=== PATIENT | male | born 1970 | race Caucasian/White ===

== ENCOUNTER 2019-04-04 19:04 | Emergency (ER) | payer OTHER ==
--- NOTE | 2019-04-04 20:27 | ER Document Report ---
ED General - General Chief Complaint: Shortness Of Breath Stated Complaint: DIFFICULTY BREATHING Time Seen by Provider: 04/04/19 20:15 TRAVEL OUTSIDE OF THE [place] IN LAST 30 DAYS: No - HPI Notes: Patient was working on a deck and fell through it falling approximately 2 feet hitting the left lateral aspect of his ribs on the existing planks. Since that time his had a cold he feels like he may have acquired a cold from her has been having a lot of sinus congestion wheezing. He had had asthma as a child had recurrent bronchitis in the past. Is a non-smoker no known medical problems is not taking medications on a daily basis - Related Data Allergies/Adverse Reactions: codeine Allergy (Verified 04/04/19 19:09) Penicillins Allergy (Verified 04/04/19 19:09) Past Medical History - Social History Smoking Status: Never Smoker Family History: Reviewed & Not Pertinent Patient has suicidal ideation: No Patient has homicidal ideation: No Physical Exam - Vital signs Vitals: Temp Pulse Resp BP Pulse Ox 99.4 F 84 20 139/85 H 92 04/04/19 19:19 04/04/19 19:19 04/04/19 19:19 04/04/19 19:19 04/04/19 19:19 - General General appearance: Appears well, Alert - HEENT Head: Normocephalic, Atraumatic Eyes: Normal Conjunctiva: Normal Cornea: Normal Extraocular movements intact: Yes Pupils: PERRL - Respiratory Respiratory status: No respiratory distress Chest status: Other - Ecchymosis lateral left aspect of lower chest wall with minor tenderness to palpation but no crepitus. Breath sounds: Other - Mild wheezing upper lung rhodes decreased air movement with no crackles bilateral lower lung rhodes Chest palpation: Tender - Cardiovascular Rhythm: Regular Heart sounds: Normal auscultation Murmur: No - Abdominal Inspection: Normal Distension: No distension Bowel sounds: Normal Tenderness: Nontender - Back Back: Normal, Nontender - Extremities General upper extremity: Normal inspection, Normal ROM General lower extremity: Normal inspection, Normal ROM - Neurological Neuro grossly intact: Yes Cognition: Normal Course - Re-evaluation Re-evalutation: 04/04/19 21:14 Acute findings other than hyperinflation on x-ray. Will provide prednisone and albuterol puffer. Return precautions provided - Vital Signs Vital signs: Temp Pulse Resp BP Pulse Ox 98.5 F 84 17 140/75 H 94 04/04/19 22:00 04/04/19 22:00 04/04/19 22:00 04/04/19 22:00 04/04/19 22:00 Discharge - Discharge Clinical Impression: Bronchitis Condition: Good Disposition: HOME, SELF-CARE Instructions: Bronchitis ([facility]) Additional Instructions: Please use puffer provided 1 to 2 puffs every 4 hours as needed for breathing symptoms. Prescriptions: Prednisone [Deltasone 20 mg Tablet] 2 tab PO DAILY 5 Days tablet
--- NOTE | 2019-04-04 20:28 | RADIOLOGY REPORT (SQ) ---
EXAM DESCRIPTION: CLINICAL HISTORY: 49 years Male, respiratory distress shortness of breath COMPARISON: None. FINDINGS: Chest x-ray demonstrates normal cardiomediastinal silhouette. Mild hyperinflation. No acute lung or pleural abnormalities. No suspicious bilateral rib abnormality. IMPRESSION: No acute findings. Mild hyperinflation.
[2019-04-04] MEDS ORDERED: ALBUTEROL SULFATE HFA (90 MCG/PUFF) 8 GM MDI (1 MDI/ER DISP) IH ONE (21:13)
[2019-04-04 22:17] VITALS: BP 140/75
== END 2019-04-04 22:00 | disposition home or self-care (01) ==
LOC: ER 19:04
DX: J40 Bronchitis, not specified as acute or chronic (principal); R06.02 Shortness of breath; W17.89XA Other fall from one level to another, initial encounter
CPT/HCPCS: 99283; 71111; J3490